=== PATIENT | female | born 2000 | race Caucasian/White ===

== ENCOUNTER 2020-11-14 21:16 | Emergency (ER) | payer OTHER ==
[~2020-11-14 21:16] MED LIST: BACTROBAN OINT22 GM EXT; COLACE 100MG C100 MG PO; IBUPROFEN600 MG PO; KEFLEX CAP 500500 MG PO; LORTAB 5-325 M1 EACH PO; MACROBID 100 M100 MG PO; NORCO 5-325 TA1 EACH PO; REGLAN10 MG PO; SULFAMETHOXAZO1 EACH PO; ZOFRAN ODT 4 MG4 MG PO
== END 2020-11-14 22:05 | disposition left against medical advice (07) ==
LOC: ER1 21:16
DX: Z53.21 Procedure and treatment not carried out due to patient leaving prior to being seen by health care provider (principal)

== ENCOUNTER 2020-11-15 08:04 | Emergency (ER) | payer OTHER | END 2020-11-15 12:21 | disposition home or self-care (01) | LOC: ER1 08:04 | DX: J02.9 Acute pharyngitis, unspecified (principal); R05 Cough; Z90.49 Acquired absence of other specified parts of digestive tract; F17.200 Nicotine dependence, unspecified, uncomplicated; Z20.822 Contact with and (suspected) exposure to COVID-19 | CPT/HCPCS: 87081; 87880; 96372; 99283; J0561; U0002 ==